=== PATIENT | male | born 2000 | race Caucasian/White ===

== ENCOUNTER 2023-03-21 00:57 | Emergency (ER) | payer SELFPAY ==
[~2023-03-21] VITALS: Ht 170.2 cm; Wt 49.9 kg
[2023-03-21] MEDS ORDERED: VENL150ER PO (01:15)
[2023-03-21] MEDS ORDERED: METPRE4DP PO (01:54)
[2023-03-21 02:00] VITALS: BP 106/63
== END 2023-03-21 02:06 | disposition home or self-care (01) ==
LOC: ER 00:57
DX: L50.9 Urticaria, unspecified (principal); T78.40XA Allergy, unspecified, initial encounter; Z88.8 Allergy status to other drugs, medicaments and biological substances; Z79.899 Other long term (current) drug therapy; S40.812A Abrasion of left upper arm, initial encounter; S20.412A Abrasion of left back wall of thorax, initial encounter
CPT/HCPCS: 99284